=== PATIENT | female | born 2000 | race American Indian/Alaskan Native ===

== ENCOUNTER 2020-08-23 09:30 | Emergency (ER) | payer SELFPAY ==
[2020-08-23 09:38] VITALS: BP 132/85
--- NOTE | 2020-08-23 10:07 | Emergency Department Report ---
ED General Adult HPI - General Chief complaint: Eye Problems Stated complaint: LEFT EYE PAIN Time Seen by Provider: 08/23/20 09:50 Source: patient Mode of arrival: Ambulatory Limitations: No Limitations - History of Present Illness Initial comments: 19-year-old -[place] female patient presents with complaints of left eye pain and swelling x4 days. She denies any trauma to her eye, photophobia, vision changes, contact lens wearing, fever/chills/sweats, or redness to the face. Patient rates her pain is 8/10 in severity and states it improves with ibuprofen. She does report crusting of the eye shut. No pain with eye movements per patient. - Related Data Previous Rx's Medication Instructions Recorded Last Taken Type Erythromycin [Erythromycin Ophth 1 cm OU Q3H 7 Days #1 tube 08/23/20 Unknown Rx Oint] Ibuprofen [Motrin 800 MG tab] 800 mg PO Q8HR PRN #20 tablet 08/23/20 Unknown Rx Allergies Allergy/AdvReac Type Severity Reaction Status Date / Time No Known Allergies Allergy Unverified 08/23/20 09:34 ED Review of Systems ROS: Stated complaint: LEFT EYE PAIN Other details as noted in HPI Constitutional: denies: chills, diaphoresis, fever, malaise Eyes: eye pain, eye discharge. denies: vision change ENT: denies: throat pain Respiratory: denies: cough, shortness of breath Gastrointestinal: denies: nausea, vomiting Neurological: denies: headache Hematological/Lymphatic: denies: swollen glands ED Past Medical Hx - Past Medical History Previous Medical History?: No - Surgical History Past Surgical History?: No - Social History Smoking Status: Never Smoker Substance Use Type: None - Medications Home Medications: Home Medications Medication Instructions Recorded Confirmed Last Taken Type Erythromycin [Erythromycin Ophth 1 cm OU Q3H 7 Days #1 tube 08/23/20 Unknown Rx Oint] Ibuprofen [Motrin 800 MG tab] 800 mg PO Q8HR PRN #20 tablet 08/23/20 Unknown Rx ED Physical Exam - General Limitations: No Limitations General appearance: alert, in no apparent distress - Head Head exam: Present: atraumatic, normocephalic - Eye Eye exam: Present: PERRL, EOMI (No pain with eye movements), other (Hordeolum noted to left upper eyelid with overlying lid swelling; mild erythema of the lid noted with mild tenderness to palpation). Absent: scleral icterus, conjunctival injection - Neck Neck exam: Present: normal inspection - Respiratory Respiratory exam: Absent: respiratory distress - Cardiovascular Cardiovascular Exam: Present: regular rate - Neurological Exam Neurological exam: Present: alert, oriented X3, normal gait - Psychiatric Psychiatric exam: Present: normal affect, normal mood - Skin Skin exam: Present: warm, dry, intact, normal color. Absent: rash ED Course Vital Signs 08/23/20 09:34 Temperature 97.9 F Pulse Rate 96 H Respiratory 18 Rate Blood Pressure 132/85 O2 Sat by Pulse 100 Oximetry ED Medical Decision Making - Medical Decision Making 19-year-old -[place] female patient presents with complaints of left eye pain and swelling x4 days. She denies any trauma to her eye, photophobia, vision changes, contact lens wearing, fever/chills/sweats, or redness to the face. Patient rates her pain is 8/10 in severity and states it improves with ibuprofen. She does report crusting of the eye shut. No pain with eye movements per patient. Hordeolum noted on exam. Will treat with erythromycin and warm compresses. Patient to follow-up with primary care doctor in 3 to 5 days. Discussed signs and symptoms that should prompt immediate return to the emergency department in detail with patient who verbalizes understanding. She is well-appearing, her vitals are stable, she is to discharge home. Critical care attestation.: If time is entered above; I have spent that time in minutes in the direct care of this critically ill patient, excluding procedure time. ED Disposition Clinical Impression: Hordeolum internum left upper eyelid Disposition: [id number] PSY HOSP/PSY UNIT Is pt being admited?: No Condition: Stable Instructions: Stye Prescriptions: Erythromycin [Erythromycin Ophth Oint] 1 cm OU Q3H 7 Days #1 tube Ibuprofen [Motrin 800 MG tab] 800 mg PO Q8HR PRN #20 tablet PRN Reason: pain Referrals: [facility] [Provider Group] - 3-5 Days
== END 2020-08-23 10:29 ==
LOC: ED 09:30
DX: H00.024 Hordeolum internum left upper eyelid (principal); Z79.899 Other long term (current) drug therapy
CPT/HCPCS: 99282